=== PATIENT | female | born 1960 | race Caucasian/White ===

== ENCOUNTER 2020-03-04 14:29 | Emergency (ER) | payer SELFPAY ==
[2020-03-04 14:36] VITALS: BP 133/93; PULSE 110; RESP 20; TEMP 36.7; O2SAT 97; BMI 33.0
[2020-03-04] MEDS: acetaminophen 325 mg Tablet 650 MG PO (15:42)
[2020-03-04] MEDS: sodium chloride 0.9% 1,000 ML 999 ML IV (15:51)
[2020-03-04] MEDS: famotidine 20 mg/2 mL INJ 40 MG IVP (15:54)
[2020-03-04] MEDS: diphenhydrAMINE 50 mg/mL SDV 1mL 25 MG IVP (15:55)
--- NOTE | 2020-03-04 16:14 | ED_ITS ---
HPI - Allergic Reaction General: Chief complaint: Allergic Reaction Stated complaint: MAURICIO SENT/POSS ANAPHYLACTIC SHOCK Time Seen by Provider: 03/04/20 15:31 Source: patient Mode of arrival: ambulatory Limitations: no limitations History of Present Illness: HPI narrative: 60-year-old female patient presents to the emergency department with 4-day onset of allergic reaction . She reports utilize new face cream prior to facial swelling and itching. Reports also bit by an insect to the base of the left hairline. She reports attempting Benadryl without improvement. States her primary care provider advised her to come to the emergency room today Patient is also requesting refill of maintenance medication, Effexor and albuterol. Reports her primary care physician has retired and is not able to receive prescription refills. States she takes Effexor, 75 mg daily, reports is not an extended release version. She is also requesting albuterol inhaler refill in case of asthma symptoms. MD complaint: allergic reaction, hives and facial swelling Onset (ago): day(s) (4) Exposure: insect bite and cleaning product exposure Associated symptoms: Reports dizziness, facial swelling, itching and rash; Deny abdominal pain, nausea or vomiting Severity: moderate Treatment prior to arrival: benadryl Previous Allergic Reaction History: none Review of Systems General: Reports: 10 or more systems reviewed and unremarkable except in HPI and below Const: Denies: fever(s), chills or diaphoresis Eyes: Denies: blurry vision or eye redness ENMT: Denies: throat pain, dental pain or disequilibrium Card: Denies: chest pain, palpitations or irregular heart rhythm Resp: Denies: dyspnea, productive cough, non-productive cough or wheezing GI: Denies: abdominal pain, nausea or vomiting : Denies: difficulty voiding or dysuria Musc: Denies: back pain Skin/Breast: Reports: rash, pruritus, erythema and changes in skin color Neuro: Reports: headache(s) and dizziness; Denies: sensory changes, difficulty walking or confusion Psych: Denies: anxiety or depression Edgardo/Lymph: Denies: easy bruising All/Imm: Reports: facial swelling and itchy eyes Physical Exam Const: COMMON NORMALS: no acute distress, patient oriented x3, healthy appearing and alert GENERAL APPEARANCE: cooperative, comfortable and well hydrated HENMT: COMMON NORMALS: normocephalic, Normal external nose present and moist oral mucous membranes HEAD & SCALP: normocephalic NOSE: Normal external nose present Eye: COMMON NORMALS: Equal, round and reactive pupils present and EOMs intact bilaterally GENERAL EYE: appearance normal, both eyes and all related structures PUPIL: Yes Equal, round and reactive pupils present Neck/C-Spine: COMMON NORMALS: full ROM and no lymphadenopathy GENERAL: Yes normal visual inspection and Yes trachea midline CERVICAL SPINE: Yes cervical ROM normal Lymph: LYMPHATIC: no lymphadenopathy noted Chest: COMMONS NORMALS: normal inspection of the chest Resp: COMMON NORMALS: normal respiratory effort and clear to auscultation bilaterally AUSCULTATION: clear to auscultation bilaterally Cardio: COMMON NORMALS: regular rhythm, S1 normal heart sound present, S2 normal heart sound present and Peripheral pulses 2+ throughout RHYTHM: regular rhythm HEART SOUNDS: S1 normal heart sound present and S2 normal heart sound present PERIPHERAL PULSES: Peripheral pulses 2+ throughout GI: COMMON NORMALS: Normal to inspection, nondistended, normoactive bowel sounds present, Soft to palpation and non-tender INSPECTION: Yes normal to inspection PALPATION: Yes Soft to palpation : COMMON NORMALS: Yes no CVA tenderness BLADDER/KIDNEY EXAM: Yes no CVA tenderness Back/Pelvis: COMMON NORMALS: no CVA tenderness and thoracic and lumbar spine normal to inspection Extremity: COMMON NORMALS: normal to inspection and capillary refill normal Neuro: COMMON NORMALS: patient oriented x3 and no focal motor deficits SENSORIUM/ORIENTATION: Yes alert Psych: COMMON NORMALS: mental status grossly normal, Normal thought process present and cooperative ACTIVITY/MOTOR BEHAVIOR: Yes appropriate eye contact THOUGHT PROCESS: Normal thought process present Skin: COMMON NORMALS: turgor normal GENERAL SKIN EXAM: turgor normal RASHES: rashes noted (Erythematous flat rash to the face, base of the anterior neck) TRAUMA: abrasion (1 cm x 1 cm annular abrasion to the base hairline, no erythema/drainage) NAILS: normal Course ED course: 60-year-old female patient presents to the emergency department with rash and swelling to the face status post application of facial cream that was new. She also presents with a possible insect bite to the left hairline of the neck. Symptoms for 4 days. Reports not improving. [id number] Benadryl is not effective. Solu-Medrol, IV fluids Pepcid administered here in the ED. Resolution of redness and swelling to the face noted. O2 saturation 98 to 100% on room air with heart rate 85-88, regular. Refill of maintenance medication, Effexor and albuterol provided to the patient upon request. She was advised need for follow-up with a primary care provider for continued refills. Verbalized understanding, social service consult completed. Vital Signs: Vital signs: Vital Signs Temperature 98.0 F 03/04/20 14:36 Pulse Rate 110 H 03/04/20 14:36 Respiratory Rate 20 H 03/04/20 14:36 Blood Pressure 133/93 03/04/20 14:36 Pulse Oximetry 97 03/04/20 14:36 Discharge Plan Discharge Patient Disposition: Home Clinical Impression: Urticaria, Medication refill Allergic reaction Qualifiers: Encounter type: initial encounter Qualified Code(s): T78.40XA - Allergy, unspecified, initial encounter Condition: Stable Prescriptions: New prednisone 20 mg tablet 20 mg PO BID 5 Days Qty: 10 RF: 0 Allergy Relief (loratadine) 10 mg tablet 10 mg PO Q24H Qty: 10 RF: 0 venlafaxine 75 mg tablet 75 mg PO DAILY Qty: 30 RF: 0 Ventolin HFA 90 mcg/actuation HFA aerosol inhaler 2 puff inhalation Q4H PRN (Reason: shortness of breath or wheezing) Qty: 18 RF: 0 Discharge Orders: Discharge Order (Routine); Ordered 03/04/20 Ordered By: Carri Guan Referrals: Breanna Charles DO [Primary Care Provider] - Discharge Diet: Advance as tolerated Discharge Activity: Resume usual activity Patient Instructions: Urticaria (ED), Anaphylaxis (ED) Activity Restrictions/Additional Instructions: You will need to follow-up with a primary care provider for your next refill of medication, Effexor and albuterol Take prednisone with food, take until all gone, you will need your first dose tonight prior to bedtime. Do not apply any creams or lotions to your face, apply cool compresses only, avoid heat Monitor abrasion to the left upper neck for signs and symptoms of infection such as redness, drainage or infection, if occurs, follow-up with your primary care provider or return to the emergency department Return to the emergency department if you develop shortness of breath, increased rash/itching, facial swelling or return of symptoms Social service will be contacting you with a follow-up appointment with your primary care provider for medication refill needs. Coding Level of Care Code ED Molasses Coloring Operator for Chg Fwd Exam Comprehensive
[2020-03-04 17:41] VITALS: BP 157/93; PULSE 93; RESP 18; O2SAT 95
--- NOTE | 2020-03-05 13:07 | DCPLANNER ---
erp project manager had message to speak with patient about a primary care physician follow up. erp project manager called [phone], unable to speak with patient at this time, a voicemail was left for patient to return rehabilitation caseworker phone call.
--- NOTE | 2020-03-05 14:12 | DCPLANNER ---
applications engineering manager had message to schedule a follow up appointment with primary care. Patient stated that she does not have insurance at this time, upper caser will mail patient both of the financial assistance advisor applications. applications engineering manager will also send patient information for [facility], [place], and the phone number to [facility]. Patient stated that if she is approved for the financial assistance advisor that she will think about going to see Dr. Kraus at [facility] for primary care.
== END 2020-03-04 17:42 | disposition home or self-care (01) ==
PROVIDERS: Emergency Provider Nurse Practitioner Family; PCP Family Medicine
DX: T78.40XA Allergy, unspecified, initial encounter (principal); L50.9 Urticaria, unspecified; Z76.0 Encounter for issue of repeat prescription
CPT/HCPCS: 12345; 96361; 96374; 96375; 99282; 99283; J1200; J2930; J3490; J7030

== ENCOUNTER 2022-04-20 17:03 | Emergency (ER) | payer SELFPAY ==
[2022-04-20 18:28] VITALS: BP 137/85; PULSE 102; RESP 18; TEMP 36.6; O2SAT 94; BMI 33.9
[2022-04-20 18:28] LABS: ABG PCO2 33.1 mmHg (35-45); ABG PH Result 7.45 (7.35-7.45); Alveolar-Arterial Oxygen Gradi 2.1 mmHg (5-10); Arterial Blood Gas Hematocrit 48.4 % (37-47); Base Excess ABG -0.2 mmol/L (-2.0-2.0); Blood Gas Allen Test Pos; Blood Gas Operator Identificat WALCI; Blood Gas Sample Site Radial, left; Blood Gas Sample Type Arterial; Carboxyhemoglobin 7.1 %THgb (0.4-20.1); HGB O2 Sat 90.8 % (95-100); Ionized Calcium Level - ABG 1.3 mmol/L (1.1-1.4); Methemoglobin 0.7 % (0.4-1.5); Oxygen Saturation ABG 98.6; PO2 ABG 90.8 mmHg (80.0-100.0); Potassium Level - ABG 4.2 mmol/L (3.5-5.0); Total Hemoglobin 15.8 g/dL (12-16)
--- NOTE | 2022-04-20 19:25 | PC.NURSE ---
states the other day she had changed batteries in her smoke alarms and carbon monoxide detectors. states the carbon monoxide alarm kept going off. pt reports she felt like she was having an allergic reaction, so she took benadryl and predisone 2 days ago. reports initial improvement but today felt symptoms again. reports eyes swollen, headache, and upset stomach. pt speech clear, speaking in complete sentences without difficulty. skin pink/warm/dry. lung sounds clear throughout. bowel sounds present x4. pt appears in no acute distress.
--- NOTE | 2022-04-20 19:50 | W.ED.GENADLT ---
HPI - General Adult General: Chief complaint: General Medical Stated complaint: possible carbonmonoxide poisoning Time Seen by Provider: 04/20/22 19:32 History of Present Illness: Patient is a 62-year-old female who comes to the ED with an allergic reaction and carbon monoxide exposure. Patient states that approximately 2 days ago her carbon monoxide detectors were beeping. She states that she closed off the propane line to the gas fireplace and opened up all the windows in her house. She is currently having symptoms of some facial swelling and tingling sensation of her tongue. She has a history of allergic reactions and has an allergy to shellfish and bee stings. her current symptoms feel like past allergic reactions, but she is unsure what is causing it. She denies any trouble breathing or any throat tightening. She has been taking some prednisone and Benadryl at home the last 2 days and it helped the first day or 2 but today her tongue tingling sensation in facial swelling came back. She contacted her primary care doctor they told her to come to the ED for further evaluation. Denies any headaches, dizziness, nausea or vomiting, confusion or weakness. 3 Patient also states that she does not currently have a PCP because hers retired and she needs to get a new primary care physician. She just ran out of her albuterol inhaler and venlafaxine prescription and would like to get refills today. Associated symptoms: Deny chest pain, dyspnea, headache(s), nausea, rash, palpitations or vomiting Review of Systems Const: Denies: fever(s), chills or fatigue Eyes: Denies: change in vision or eye discomfort ENMT: Denies: throat pain, odynophagia, nasal discharge or nasal congestion Card: Denies: chest pain, palpitations, edema, swelling of feet/ankles, dyspnea on exertion or orthopnea Resp: Denies: dyspnea, productive cough or non-productive cough GI: Denies: abdominal pain, nausea, vomiting, diarrhea, constipation or hematochezia : Denies: flank pain, dysuria or hematuria Musc: Denies: neck pain, back pain or extremity swelling Skin/Breast: Denies: rash or new lesions Neuro: Denies: headache(s), numbness in extremities or weakness in extremities All/Imm: Reports: facial swelling and other (Tingling sensation of tongue) [facility] ED PFSH: Medical History No pertinent family history Surgical History No pertinent past surgical history Physical Exam Const: COMMON NORMALS: no acute distress, patient oriented x3 and alert GENERAL APPEARANCE: cooperative and comfortable HENMT: COMMON NORMALS: normocephalic HEAD & SCALP: normocephalic MOUTH: Normal oral and palatal mucosa present, lip normal and tongue normal THROAT: posterior oropharynx normal and uvula midline Neck/C-Spine: COMMON NORMALS: supple GENERAL: Yes normal visual inspection Resp: COMMON NORMALS: normal respiratory effort, No retractions, No use of accessory muscles and clear to auscultation bilaterally AUSCULTATION: clear to auscultation bilaterally Cardio: COMMON NORMALS: regular rate, regular rhythm, S1 normal heart sound present, S2 normal heart sound present, No gallops present (Cardio), No clicks present (Cardio), No murmurs present (Cardio) and Peripheral pulses 2+ throughout RATE: regular rate RHYTHM: regular rhythm HEART SOUNDS: S1 normal heart sound present and S2 normal heart sound present PERIPHERAL PULSES: Peripheral pulses 2+ throughout GI: COMMON NORMALS: Normal to inspection, nondistended, normoactive bowel sounds present, Soft to palpation, non-tender and no masses PALPATION: Yes Soft to palpation : COMMON NORMALS: Yes no CVA tenderness BLADDER/KIDNEY EXAM: Yes no CVA tenderness Back/Pelvis: COMMON NORMALS: no CVA tenderness Extremity: COMMON NORMALS: normal to inspection Neuro: COMMON NORMALS: patient oriented x3 SENSORIUM/ORIENTATION: Yes alert GAIT: Yes Normal gait present Skin: GENERAL SKIN EXAM: dry skin Course Vital Signs: Vital signs: Vital Signs Temperature 98 F 04/20/22 18:28 Pulse Rate 86 04/20/22 22:49 Respiratory Rate 16 04/20/22 22:49 Blood Pressure 157/95 04/20/22 22:49 Pulse Oximetry 95 04/20/22 22:49 Oxygen Delivery Me thod 04/20/22 21:17 [facility] - General Adult Medical Decision Making Patient is a 62-year-old female who comes to the ED with an allergic reaction and carbon monoxide exposure. Patient states that approximately 2 days ago her carbon monoxide detectors were beeping. She states that she closed off the propane line to the gas fireplace and opened up all the windows in her house. She is currently having symptoms of some facial swelling and tingling sensation of her tongue. Vitals are stable. Patient appears nontoxic in no acute distress or pain. Tongue and lips appear normal. ABG normal and no elevated methemoglobin levels. Patient was given IV Pepcid, Solu-Medrol and Benadryl and fluids here in the ED. Her symptoms improved and resolved here in the ED. She was watched for approximately 2 hours after given medications and she was still doing well. She was stable for discharge home and diagnosed with exposure to carbon monoxide, allergic reaction and medication refill. Patient also states that she does not currently have a PCP because hers retired and she needs to get a new primary care physician. She just ran out of her albuterol inhaler and venlafaxine prescription and would like to get refills today. I placed an order with case management for patient to be set up with a PCP. I will also send her home with new prescriptions for her venlafaxine and albuterol inhaler. Lab Data I reviewed the patient's lab results. Laboratory Results Specimen Type Arterial 04/20/22 18:17 Sample Site Radial, left 04/20/22 18:17 ABG pH 7.45 (7.35-7.45) 04/20/22 18:17 ABG pCO2 33.1 mmHg (35-45) L 04/20/22 18:17 ABG pO2 90.8 mmHg (80.0-100.0) 04/20/22 18:17 ABG HCO3 23.0 mmol/L (22-26) 04/20/22 18:17 ABG O2 Saturation 98.6 04/20/22 18:17 ABG Base Excess -0.2 mmol/L (-2.0-2.0) 04/20/22 18:17 Rodolfo Test Pos 04/20/22 18:17 A-a O2 Gradient 2.1 mmHg (5-10) L 04/20/22 18:17 Hematocrit 48.4 % (37-47) H 04/20/22 18:17 Hgb O2 Saturation 90.8 % (95-100) L 04/20/22 18:17 Carboxyhemoglobin 7.1 %THgb (0.4-20.1) 04/20/22 18:17 Methemoglobin 0.7 % (0.4-1.5) 04/20/22 18:17 Total Hemoglobin 15.8 g/dL (12-16) 04/20/22 18:17 Sodium 142.0 mmol/L (131-143) 04/20/22 18:17 Potassium 4.2 mmol/L (3.5-5.0) 04/20/22 18:17 Glucose 127.0 mg/dL (70-115) H 04/20/22 18:17 Ionized Calcium 1.3 mmol/L (1.1-1.4) 04/20/22 18:17 O2 Delivery Device None 04/20/22 18:17 FiO2 21.0 % 04/20/22 18:17 [employer] Consultant ID Florentino 04/20/22 18:17 Discharge Plan Discharge Patient Disposition: Home Clinical Impression: Accidental exposure to carbon monoxide, Medication refill Allergic reaction Qualifiers: Encounter type: initial encounter Qualified Code(s): T78.40XA - Allergy, unspecified, initial encounter Condition: Stable Prescriptions: New prednisone 20 mg tablet 20 mg PO BID 5 Days Qty: 10 0RF Benadryl 25 mg capsule 25 mg PO TID PRN (Reason: allergic reaction) Qty: 20 0RF venlafaxine 75 mg tablet 75 mg PO BID Qty: 30 0RF albuterol sulfate 90 mcg/actuation HFA aerosol inhaler 2 inh inhalation Q6H PRN (Reason: shortness of breath or wheezing) Qty: 8.5 0RF No Action Allergy Relief (loratadine) 10 mg tablet 10 mg PO Q24H Qty: 10 0RF Rx Instructions: take 1 PO daily for 10 days venlafaxine 75 mg tablet 75 mg PO DAILY Qty: 30 0RF Rx Instructions: take 1 PO daily for anxiety/depression Ventolin HFA 90 mcg/actuation HFA aerosol inhaler 2 puff inhalation Q4H PRN (Reason: shortness of breath or wheezing) Qty: 18 0RF Rx Instructions: use 2 puffs every 4-6 hours PRN SOB/wheezing Discharge Orders: Discharge ED (Routine); Ordered 04/20/22 Ordered By: Hal Jeffrey Discharge Diet: Regular Discharge Activity: Increase activity as tolerated Patient Instructions: Allergic Reaction Activity Restrictions/Additional Instructions: Follow-up with medical provider as directed. Case management should be contacted in the next several days to set up an appointment with her primary care physician for follow-up. Take medications as prescribed. Return to the ER or your medical provider if condition worsens. Please read and understand discharge instructions. Thank you for choosing [facility] for your healthcare needs today. Please realize this is an emergency room and that we are providing you with a medical screening exam and this may not be complete and all inclusive of all the testing and or work up that you may need to determine your ailment or severity of your illness. It is very important that you follow up as instructed or that you return to the Emergency Department should you have concerns or if your condition changes or worsens in any way. Coding Level of Care Code ED Epic Director for Jelly Ayoub Exam Comprehensive
[2022-04-20] MEDS: sodium chloride 0.9% 500 ML 999 ML IV (20:18)
[2022-04-20] MEDS: famotidine 20 mg/2 mL INJ 40 MG IVP (20:32)
[2022-04-20] MEDS: diphenhydrAMINE 50 mg/mL SDV 1mL 25 MG IVP (20:32)
[2022-04-20 21:17] VITALS: BP 152/79; PULSE 74; RESP 16; O2SAT 95
--- NOTE | 2022-04-20 21:19 | PC.NURSE ---
pt reports improvement of symptoms. lights dimmed for comfort. denies any needs at this time.
[2022-04-20 22:49] VITALS: BP 157/95; PULSE 86; RESP 16; O2SAT 95
--- NOTE | 2022-04-21 13:11 | DCPLANNER ---
corporate compliance manager had message to speak with patient about getting established with a primary care physician. corporate compliance manager called phone number [phone], unable to speak with patient at this time, a voicemail was left for patient to return assistant case manager phone call.
== END 2022-04-20 22:50 | disposition home or self-care (01) ==
PROVIDERS: Emergency Medicine; Emergency Provider Physician Assistant
DX: T78.40XA Allergy, unspecified, initial encounter (principal); T58.11XA Toxic effect of carbon monoxide from utility gas, accidental (unintentional), initial encounter; Z76.0 Encounter for issue of repeat prescription
CPT/HCPCS: 36600; 80051; 82330; 82805; 96374; 96375; 99284; J1200; J2930; J3490; J7040